=== PATIENT | female | born 1990 | race Caucasian/White ===

== ENCOUNTER 2018-01-12 14:36 | Emergency (ER) | payer SELFPAY ==
[2018-01-12] MEDS ORDERED: RINGERS SOLUTION,LACTATED 1,000 ML IV ONE (15:03)
[2018-01-12 15:33] LABS: ABSOLUTE BASOPHILS # (AUTO) 0.1 10^3/uL (0.0-0.2); ABSOLUTE EOSINOPHILS # (AUTO) 0.2 10^3/uL (0.0-0.6); ABSOLUTE LYMPHOCYTES (AUTO) 1.8 10^3/uL (0.5-4.7); ABSOLUTE MONOCYTES (AUTO) 0.5 10^3/uL (0.1-1.4); ABSOLUTE NEUT (AUTO) 6.2 10^3/uL (1.7-8.2); BASOPHILS % (AUTO) 0.9 % (0-2); EOSINOPHILS % (AUTO) 2.2 % (0-6); HEMATOCRIT 42.2 % (36.0-47.0); HEMOGLOBIN 14.3 g/dL (12.0-15.5); LYMPHOCYTES % (AUTO) 20.6 % (13-45); MEAN CORPUSCULAR HEMOGLOBIN 29.5 pg (27.0-33.4); MEAN CORPUSCULAR HGB CONC 33.9 g/dL (32.0-36.0); MEAN CORPUSCULAR VOLUME 87 fl (80-97); PLATELET COUNT 255 10^3/uL (150-450); RED BLOOD COUNT 4.85 10^6/uL (3.72-5.28); RED CELL DISTRIBUTION WIDTH 15.8 % (11.5-14.0); SEGMENTED NEUTROPHILS % (AUTO) 70.3 % (42-78); TOTAL CELLS COUNTED % (AUTO) 100 %; WHITE BLOOD COUNT 8.8 10^3/uL (4.0-10.5)
[2018-01-12 15:57] LABS: ALANINE AMINOTRANSFERASE 23 U/L (9-52); ALBUMIN 4.4 g/dL (3.5-5.0); ALKALINE PHOSPHATASE 97 U/L (38-126); ANION GAP 13 (5-19); ASPARTATE AMINO TRANSFERASE 26 U/L (14-36); BILIRUBIN,DIRECT 0.4 mg/dL (0.0-0.4); BILIRUBIN,TOTAL 0.6 mg/dL (0.2-1.3); BLOOD UREA NITROGEN 13 mg/dL (7-20); CALCIUM 9.4 mg/dL (8.4-10.2); CARBON DIOXIDE 27 mmol/L (22-30); CHLORIDE 102 mmol/L (98-107); GLUCOSE 86 mg/dL (75-110); POTASSIUM 3.7 mmol/L (3.6-5.0); SODIUM 141.5 mmol/L (137-145); TOTAL PROTEIN 7.9 g/dL (6.3-8.2)
--- NOTE | 2018-01-12 16:02 | ER Document Report ---
ED Dizziness/Weakness <USHAMICHA - Last Filed: 01/12/18 16:33> - General Mode of Arrival: Ambulatory Information source: Patient TRAVEL OUTSIDE OF THE [place] IN LAST 30 DAYS: No <ETHAN ANTUNEZ - Last Filed: 01/12/18 22:29> - General Chief Complaint: Passed Out Prior to Arrival Stated Complaint: SYNCOPE Time Seen by Provider: 01/12/18 15:03 Notes: Patient is a 27 year old female presenting to the emergency department complaining of a syncopal episode prior to arrival. Patient states she was sitting in a meeting when she began to feel clammy, diaphoretic and dizzy. She states her coworkers gave her a piece of taffy thinking her blood sugar was low. She states shortly after she began to black out and have a syncopal episode. Patient states she was alert and oriented when she regained consciousness. Her coworkers checked her vitals and reported a blood pressure of 144/100, a pulse ox of 88 and and a blood sugar of 96. Patient states she had a similar episode when she was in high school and had a minor work up in the emergency department which was found to be unremarkable. Patient states a few years ago she had a neurology workup with an EEG, MRI, and CT scan performed due to her having seizure like episodes. Patient reports during said episodes she would "space out" and have phantom smells. Patient was prescribed Topamax and was taking it for approximately 2 years when she was directed to discontinue it due to her not having any more seizure-like episodes. Patient is currently on her menstrual cycle. (ETHAN ANTUNEZ) - Related Data Allergies/Adverse Reactions: mold Allergy (Verified 01/12/18 14:44) pollen extracts Allergy (Verified 01/12/18 14:44) red dye Allergy (Verified 01/12/18 14:44) Past Medical History - General Information source: Patient - Social History Smoking Status: Never Smoker Chew tobacco use (# tins/day): No Frequency of alcohol use: Occasional Drug Abuse: None Family History: Reviewed & Not Pertinent Patient has suicidal ideation: No Patient has homicidal ideation: No Past Surgical History: Reports: Hx Tonsillectomy <ETHAN ANTUNEZ - Last Filed: 01/12/18 22:29> Review of Systems - Review of Systems Constitutional: See HPI, Diaphoresis EENT: No symptoms reported Cardiovascular: Syncope, Dizziness Respiratory: No symptoms reported Gastrointestinal: No symptoms reported Genitourinary: No symptoms reported Female Genitourinary: No symptoms reported Musculoskeletal: No symptoms reported Skin: No symptoms reported Hematologic/Lymphatic: No symptoms reported Neurological/Psychological: No symptoms reported -: Yes All other systems reviewed and negative <ETHAN ANTUNEZ - Last Filed: 01/12/18 22:29> Physical Exam <MICHA KERR - Last Filed: 01/12/18 16:33> <ETHAN ANTUNEZ - Last Filed: 01/12/18 22:29> - Vital signs Vitals: Temp Pulse Resp BP Pulse Ox 97.9 F 92 18 136/95 H 98 01/12/18 14:45 01/12/18 14:45 01/12/18 14:45 01/12/18 14:45 01/12/18 14:45 - Notes Notes: GENERAL: Alert, interacts well. No acute distress. HEAD: Normocephalic, atraumatic. EYES: Pupils equal, round, and reactive to light. Extraocular movements intact. ENT: Oral mucosa moist, tongue midline. NECK: Full range of motion. Supple. Trachea midline. LUNGS: Clear to auscultation bilaterally, no wheezes, rales, or rhonchi. No respiratory distress. HEART: Regular rate and rhythm. No murmurs, gallops, or rubs. ABDOMEN: Soft, non-tender. Non-distended. Bowel sounds present in all 4 quadrants. EXTREMITIES: Moves all 4 extremities spontaneously. NEUROLOGICAL: Alert and oriented x3. Normal speech. PSYCH: Normal affect, normal mood. SKIN: Warm, dry, normal turgor. No rashes or lesions noted. (ETHAN ANTUNEZ) Course - Laboratory Result Diagrams: 01/12/18 15:16 01/12/18 15:16 - EKG Interpretation by [facility] EKG shows normal: Sinus rhythm, Martin, Intervals, QRS Complexes, ST-T Waves Rate: Normal - 72 Rhythm: NSR <MICHA KERR - Last Filed: 01/12/18 16:33> - Laboratory Result Diagrams: 01/12/18 15:16 01/12/18 15:16 <ETHAN ANTUNEZ - Last Filed: 01/12/18 22:29> - Vital Signs Vital signs: Temp Pulse Resp BP Pulse Ox 97.8 F 76 16 144/89 H 99 01/12/18 17:00 01/12/18 17:00 01/12/18 17:00 01/12/18 17:00 01/12/18 17:00 - Laboratory Laboratory results interpreted by me: 01/12/18 15:16 RDW 15.8 H Discharge <MICHA KERR - Last Filed: 01/12/18 16:33> <ETHAN ANTUNEZ - Last Filed: 01/12/18 22:29> - Discharge Clinical Impression: Seizure Episode of syncope Qualifiers: Syncope type: unspecified Qualified Code(s): R55 - Syncope and collapse Condition: Stable Disposition: HOME, SELF-CARE Additional Instructions: Syncopal Episode: Syncope (fainting or near-fainting) can occur from many different health problems. Or it can be a simple fainting spell requiring no treatment. It is safe for you to go home, but further evaluation will likely be necessary. Your work-up may include tests for internal bleeding, heart disease, medication problems, or near-strokes. Tests are not always required, however, depending on the nature of your problem. The warning signs of an impending faint include: dizziness, lightheadedness , nausea, hot flashes, tingling, and weakness. If this happens, lay down and put your feet up, then wait until all of these symptoms have passed before standing up again. If these episodes become recurrent, or if you develop chest pain, heart palpitations, mental confusion, blurred vision, or headache, then you should call the physician, or go to the emergency room. Seizure: You MAY have had a seizure. Seizure disorders (epilepsy) of one sort or another affect about one out of 50 people. The seizure occurs because of abnormal electrical activity in the brain. Seizures may be due to drugs and alcohol, strokes, brain injury, or infection. In the most common form of epilepsy, no cause can be found. You will require further evaluation to determine the cause of your seizure, and to determine whether anti-seizure medication is required. This follow-up testing is important, so please call us if you encounter problems with scheduling of tests or appointments. YOU SHOULD NOT DRIVE until released to do so by your physician. The law requires that seizures be reported to the light truck driver's license bureau--a seizure while driving could be catastrophic. Call the doctor if seizures recur, or if you develop new symptoms such as fever, severe headache, stiff neck, confusion or increasing sleepiness, weakness or numbness, or visual problems. You most likely had a seizure today based on how this developed and your prior history. You should drink plenty of fluids get plenty of rest today. Follow-up with your primary care provider tomorrow to arrange neurological and cardiac follow-up. RETURN TO THE EMERGENCY ROOM IF ANY NEW OR WORSENING SYMPTOMS. Forms: Return to Work Scribe Attestation: 01/12/18 16:36 I personally performed the services described in the documentation, reviewed and edited the documentation which was dictated to the scribe in my presence, and it accurately records my words and actions. (MICHA KERR) [employer] Documentation - Scribe Written by Randy:: Randy Candelaria, <ETHAN ANTUNEZ - Last Filed: 01/12/18 22:29>
[2018-01-12] MEDS ORDERED: NORMAL SALINE 1000 ML 1,000 ML IV ONE (16:16)
[2018-01-12 17:12] VITALS: BP 144/89
--- NOTE | 2018-01-12 18:03 | EKG REPORT ---
SEVERITY:- NORMAL ECG - SINUS RHYTHM : Confirmed by: Leeanna Lazo 12-Jan-2018 18:03:39
== END 2018-01-12 17:02 | disposition home or self-care (01) ==
LOC: ER 14:36
DX: R55 Syncope and collapse (principal); R56.9 Unspecified convulsions; R61 Generalized hyperhidrosis; Z91.048 Other nonmedicinal substance allergy status
CPT/HCPCS: 36415; 80053; 84703; 85025; 93005; 93010; 99284

== ENCOUNTER 2018-12-21 14:48 | Emergency (ER) | payer OTHER ==
--- NOTE | 2018-12-21 15:19 | RADIOLOGY REPORT (SQ) ---
EXAM DESCRIPTION: CHEST 2 VIEWS COMPLETED DATE/TIME: 12/21/2018 3:07 pm REASON FOR STUDY: Chest Pain COMPARISON: None. EXAM PARAMETERS: NUMBER OF VIEWS: two views TECHNIQUE: Digital Frontal and Lateral radiographic views of the chest acquired. RADIATION DOSE: NA LIMITATIONS: none FINDINGS: LUNGS AND PLEURA: No opacities, masses or pneumothorax. No pleural effusion. MEDIASTINUM AND HILAR STRUCTURES: No masses or contour abnormalities. HEART AND VASCULAR STRUCTURES: Heart normal size. No evidence for failure. BONES: No acute findings. HARDWARE: None in the chest. OTHER: No other significant finding. IMPRESSION: NO ACUTE RADIOGRAPHIC FINDING IN THE CHEST. TECHNICAL DOCUMENTATION: JOB ID: [id number] [employer]- All Rights Reserved Reading location - IP/workstation name: [email or web address]
--- NOTE | 2018-12-21 15:25 | ER Document Report ---
ED Medical Screen (RME) - General Chief Complaint: Chest Pain Stated Complaint: CHEST PAIN Time Seen by Provider: 12/21/18 15:20 Mode of Arrival: Ambulatory Information source: Patient TRAVEL OUTSIDE OF THE [place] IN LAST 30 DAYS: No - HPI Patient complains to provider of: shira Notes: 12/21/18 15:23 Patient here with some intermittent chest pain radiating down the left arm and into her neck. Shortness of breath with it. No chest pain now. States that she was recently diagnosed with hypertension and started lisinopril last night. She denies any recent long trips or surgeries. She is on control pills. She denies any history of DVT or PE. States she been having some intermittent bilateral leg swelling for about a week now. Exam Nontoxic, no distress. Lungs clear and equal throughout. Heart sounds normal. No lower extremity pitting edema. Plan CBC, CMP, CPK, CK-MB, troponin, EKG, chest x-ray. An initial examination was made on the patient as part of the triage process, and it was determined a more comprehensive evaluation was necessary. Initial labs were ordered and patient was transferred to another provider in the ED who assumed care and finished evaluation and plan. - Related Data Allergies/Adverse Reactions: mold Allergy (Verified 01/12/18 14:44) pollen extracts Allergy (Verified 01/12/18 14:44) red dye Allergy (Verified 01/12/18 14:44) Past Medical History Renal/ Medical History: Denies: Hx Peritoneal Dialysis Past Surgical History: Reports: Hx Tonsillectomy Physical Exam - Vital signs Vitals: Temp Pulse Resp BP Pulse Ox 98.7 F 81 16 154/102 H 100 12/21/18 15:00 12/21/18 15:00 12/21/18 15:00 12/21/18 15:00 12/21/18 15:00 Course - Vital Signs Vital signs: Temp Pulse Resp BP Pulse Ox 98.7 F 81 16 154/102 H 100 12/21/18 15:00 12/21/18 15:00 12/21/18 15:00 12/21/18 15:00 12/21/18 15:00
[2018-12-21 15:49] LABS: ABSOLUTE EOSINOPHILS # (AUTO) 0.1 10^3/uL (0.0-0.6); ABSOLUTE LYMPHOCYTES (AUTO) 1.2 10^3/uL (0.5-4.7); ABSOLUTE MONOCYTES (AUTO) 0.5 10^3/uL (0.1-1.4); ABSOLUTE NEUT (AUTO) 7.3 10^3/uL (1.7-8.2); BASOPHILS % (AUTO) 0.4 % (0-2); EOSINOPHILS % (AUTO) 0.9 % (0-6); HEMATOCRIT 41.8 % (36.0-47.0); HEMOGLOBIN 14.3 g/dL (12.0-15.5); MEAN CORPUSCULAR HEMOGLOBIN 31.5 pg (27.0-33.4); MEAN CORPUSCULAR HGB CONC 34.1 g/dL (32.0-36.0); MEAN CORPUSCULAR VOLUME 93 fl (80-97); MONOCYTES % (AUTO) 5.9 % (3-13); PLATELET COUNT 245 10^3/uL (150-450); RED BLOOD COUNT 4.52 10^6/uL (3.72-5.28); RED CELL DISTRIBUTION WIDTH 13.7 % (11.5-14.0); SEGMENTED NEUTROPHILS % (AUTO) 79.8 % (42-78); TOTAL CELLS COUNTED % (AUTO) 100 %; WHITE BLOOD COUNT 9.2 10^3/uL (4.0-10.5)
[2018-12-21 15:59] LABS: INTERNATIONAL RATION (INR) 0.93; PROTHROMBIN TIME 12.9 SEC (11.4-15.4)
[2018-12-21 16:06] LABS: ALANINE AMINOTRANSFERASE 28 U/L (9-52); ALBUMIN 4.2 g/dL (3.5-5.0); ALKALINE PHOSPHATASE 88 U/L (38-126); ANION GAP 11 (5-19); ASPARTATE AMINO TRANSFERASE 21 U/L (14-36); BILIRUBIN,DIRECT 0.2 mg/dL (0.0-0.4); BILIRUBIN,TOTAL 0.5 mg/dL (0.2-1.3); BLOOD UREA NITROGEN 11 mg/dL (7-20); CALCIUM 9.5 mg/dL (8.4-10.2); CARBON DIOXIDE 26 mmol/L (22-30); CHLORIDE 100 mmol/L (98-107); CREATINE KINASE 42 U/L (30-135); GLUCOSE 97 mg/dL (75-110); POTASSIUM 3.8 mmol/L (3.6-5.0); SODIUM 136.7 mmol/L (137-145); TOTAL PROTEIN 7.2 g/dL (6.3-8.2)
[2018-12-21 16:19] LABS: CREATINE KINASE MB < 0.22 ng/mL (<4.55); TROPONIN I < 0.012 ng/mL
--- NOTE | 2018-12-21 19:45 | EKG REPORT ---
SEVERITY:- BORDERLINE ECG - SINUS RHYTHM PROBABLE LEFT ATRIAL ABNORMALITY : Confirmed by: Shivani Grossman MD 21-Dec-2018 19:44:00
--- NOTE | 2018-12-21 22:01 | ER Document Report ---
ED General - General Chief Complaint: Chest Pain Stated Complaint: CHEST PAIN Time Seen by Provider: 12/21/18 15:20 Primary Care Provider: RUDDY OLIVA PA-C [Primary Care Provider] - Follow up as needed Mode of Arrival: Ambulatory Notes: Patient is a 28-year-old female that comes emergency department for chief complaint of intermittent pains in her chest for approximately 1 week. She sta leti that with the pain she will occasionally feel short of breath. She states that after arrival to the emergency department she threw up, she threw up 3 times. She denies abdominal pain, flank pain, fever/chills. She denies any current symptoms. He notes with hypertension, started on lisinopril, she has had a dose of it today. She also takes oral contraceptives. She denies personal history of blood clot but her mother has had blood clots. She denies smoking, recreational drugs. She reports occasional alcohol. She denies recent travel, surgery, lower extremity swelling. TRAVEL OUTSIDE OF THE [place] IN LAST 30 DAYS: No - Related Data Allergies/Adverse Reactions: mold Allergy (Verified 01/12/18 14:44) pollen extracts Allergy (Verified 01/12/18 14:44) red dye Allergy (Verified 01/12/18 14:44) Past Medical History - General Information source: Patient - Social History Smoking Status: Never Smoker Chew tobacco use (# tins/day): No Frequency of alcohol use: None Drug Abuse: None Lives with: Family Family History: Reviewed & Not Pertinent Patient has suicidal ideation: No Patient has homicidal ideation: No - Past Medical History Cardiac Medical History: Reports: Hx Hypertension Renal/ Medical History: Denies: Hx Peritoneal Dialysis Past Surgical History: Reports: Hx Tonsillectomy - Immunizations Immunizations up to date: Yes Hx Diphtheria, Pertussis, Tetanus Vaccination: Yes Review of Systems - Review of Systems Constitutional: No symptoms reported EENT: No symptoms reported Cardiovascular: See HPI Respiratory: See HPI Gastrointestinal: See HPI Genitourinary: No symptoms reported Female Genitourinary: No symptoms reported Musculoskeletal: No symptoms reported Skin: No symptoms reported Hematologic/Lymphatic: No symptoms reported Neurological/Psychological: No symptoms reported Physical Exam - Vital signs Vitals: Temp Pulse Resp BP Pulse Ox 98.7 F 81 16 154/102 H 100 12/21/18 15:00 12/21/18 15:00 12/21/18 15:00 12/21/18 15:00 12/21/18 15:00 - Notes Notes: GENERAL: Alert, interacts well. No acute distress. HEAD: Normocephalic, atraumatic. EYES: Pupils equal, round, and reactive to light. Extraocular movements intact. ENT: Oral mucosa moist, tongue midline. Oropharynx unremarkable. Airway patent. NECK: Full range of motion. Supple. Trachea midline. LUNGS: Clear to auscultation bilaterally, no wheezes, rales, or rhonchi. No respiratory distress. HEART: Regular rate and rhythm. No murmur ABDOMEN: Soft, non-tender. Non-distended. Bowel sounds present in all 4 quadrants. GENITOURINARY: Deferred EXTREMITIES: Moves all 4 extremities spontaneously. No edema, normal radial and dorsalis pedis pulses bilaterally. No cyanosis. BACK: no cervical, thoracic, lumbar midline tenderness. No saddle anesthesia, normal distal neurovascular exam. NEUROLOGICAL: Alert and oriented x3. Normal speech. cranial nerves II through XII grossly intact. PSYCH: Normal affect, normal mood. SKIN: Warm, dry, normal turgor. No rashes or lesions noted. Course - Re-evaluation Re-evalutation: Patient with no current symptoms on my evaluation. Chest x-ray, EKG unremarkable. CBC, chemistry, troponin unremarkable. Patient with a variety of complaints, however these have all resolved. Her most recent complaint is that she threw up 3 times. She has a benign abdomen. Very nonspecific. D-dimer was performed and this was not elevated. I discussed with patient. Because of her intermittent vague symptoms of chest pain with associated shortness of breath but also vomiting with negative work- up, no drug abuse, no past family history, and no other risk factors except hypertension, I have a very low suspicion of ACS, dissection, or pulmonary embo lism. More likely gastrointestinal source with the vomiting. Patient is to continue her blood pressure medication, take clonidine, follow-up with primary care, and return if she worsens in any way. Patient states satisfaction agreement with plan. On review of her labs I realized a test had been omitted. I went back into the room, requested we also run a test, patient declines, she states that she wants to leave now, she knows she is not , she does not want to be tested for this. - Vital Signs Vital signs: Temp Pulse Resp BP Pulse Ox 97.2 F 74 16 148/92 H 100 12/21/18 23:03 12/21/18 23:03 12/21/18 15:00 12/21/18 23:03 12/21/18 23:03 - Laboratory Result Diagrams: 12/21/18 15:32 12/21/18 15:32 Laboratory results interpreted by me: 12/21/18 12/21/18 15:32 15:32 Seg Neutrophils % 79.8 H Sodium 136.7 L Creatinine 0.50 L - EKG Interpretation by Me Additional EKG results interpreted by me: EKG sinus rhythm at a rate of 87 with no T wave inversions or ST segment changes in consecutive leads. Discharge - Discharge Clinical Impression: Vomiting Qualifiers: Vomiting type: unspecified Vomiting Intractability: non-intractable Nausea presence: with nausea Qualified Code(s): R11.2 - Nausea with vomiting, unspecified Chest pain Qualifiers: Chest pain type: unspecified Qualified Code(s): R07.9 - Chest pain, unspecified Condition: Stable Disposition: HOME, SELF-CARE Additional Instructions: Your work-up is reassuring including blood tests, EKG, chest x-ray. I suspect an esophageal source of your pain, I recommend that you take the pre scribed Carafate and famotidine, take Zofran if needed if nausea/vomiting develops again. Follow-up with primary care for additional evaluation management including possible H. pylori testing, endoscopy, etc. I recommend avoiding smoking, alcohol, caffeine, spicy foods, NSAIDs for now. Return if you worsen including vomiting blood, black stools, severe worsening pain, difficulty breathing, fever, or any other concerning or worsening symptoms. Prescriptions: Famotidine [Pepcid 20 mg Tablet] 20 mg PO BID #20 tablet Ondansetron [Zofran Odt 4 mg Tablet] 1 - 2 tab PO Q4H PRN #15 tab.rapdis PRN Reason: For Nausea/Vomiting Sucralfate [Carafate 1 gm Tablet] 1 gm PO QID #20 tablet Forms: Return to Work Referrals: RUDDY OLIVA PA-C [Primary Care Provider] - Follow up as needed
[2018-12-21 23:04] VITALS: BP 148/92
== END 2018-12-21 23:04 | disposition home or self-care (01) ==
LOC: ER 14:48
DX: R07.9 Chest pain, unspecified (principal); R11.2 Nausea with vomiting, unspecified; R06.02 Shortness of breath; I10 Essential (primary) hypertension; Z79.899 Other long term (current) drug therapy; Z79.3 Long term (current) use of hormonal contraceptives; Z91.048 Other nonmedicinal substance allergy status
CPT/HCPCS: 36415; 71046; 80053; 82550; 82553; 84484; 85025; 85379; 85610; 93005; 93010; 99285